=== PATIENT | female | born 1960 | race Caucasian/White ===

== ENCOUNTER 2017-09-21 20:57 | Inpatient (IN) ==
[2017-09-21] MEDS ORDERED: methylPREDNISolone SOD SUC 125 MG/2 ML VIAL IV STA (21:35)
[2017-09-21] MEDS ORDERED: cefTRIAXone 1,000 MG in SODIUM CHLORIDE 0.9% 100 ML IV STA (21:35)
[2017-09-21] MEDS ORDERED: FUROSEMIDE 100 MG/10 ML VIAL IV STA (21:35)
[2017-09-21] MEDS ORDERED: ONDANSETRON 4 MG/2 ML VIAL IV STA (21:35)
[2017-09-21] MEDS ORDERED: ALBUTEROL/IPRATROPIUM 3 ML NEB RESP TX STA (21:35)
[2017-09-21 21:58] LABS: ABG Base Excess -2.6 MMOL/L (-2.5-2.5); ABG HCO3 22.1 MMOL/L (20-26); ABG Oxygen Saturation 93.7 % (95-100); ABG PCO2 37.5 MM HG (35-48); ABG PH 7.377 (7.35-7.45); ABG PO2 71.2 MM HG (80-95); ABG TCO2 19.1 MMOL/L (23-27)
[2017-09-21 22:00] LABS: Basophils % 0.2 % (0.0-0.8); Hematocrit 41.6 VOL% (35.7-47.0); Hemoglobin 14.1 GM/DL (12.0-16.0); Immature Granulocytes % 0.6 %; Immature Granulocytes Absolute 0.12 #; Lymphocytes # 0.6 10*3/uL (1.4-4.0); Lymphocytes % 3.3 % (21.3-54.2); Mean Corpuscular HGB Conc 33.9 GM/DL (32-36); Mean Corpuscular Hemoglobin 31 PG (27-34); Mean Corpuscular Volume 92.2 FL (87-102); Monocytes # 0.5 10*3/uL (0.11-0.8); Monocytes % 2.4 % (1.7-12.7); Neutrophils # 17.3 10*3/uL (1.4-7.4); Neutrophils % 93.5 % (38.7-73.9); Platelet Count 258 T/CUMM (130-400); Red Blood Count 4.51 MC/CUMM (3.8-5.5); White Blood Count 18.5 T/CUMM (4-12)
[2017-09-21] MEDS ORDERED: FUROSEMIDE 40 MG/4 ML VIAL ONE (22:02)
[2017-09-21 22:15] LABS: INR 0.9; PT Patient Result 9.7 SECS
[2017-09-21 22:23] LABS: Albumin 3.3 G/DL (3.4-5.0); Bilirubin,Total 0.6 MG/DL (0.2-1.0); Calcium 8.8 MG/DL (8.5-10.1); Osmolality,Calculated 286.7 MOS/KG (273-304); Potassium 3.7 MMOL/L (3.5-5.1); Total Protein 6.7 G/DL (6.4-8.3); Troponin I Only 0.018 NG/ML (0.00-0.045)
[2017-09-21] MEDS ORDERED: MAGNESIUM SULF RIDER 2 GM in PREMIX 1 EACH IV STA (22:29)
[2017-09-21 23:34] LABS: Band Neutrophils 2 % (0-10); Lymphocytes 10 % (20-55); Platelet Estimate Normal; Segmented Neutrophils 86 % (50-85); Total Cells Counted 100
[2017-09-22] MEDS ORDERED: ONDANSETRON 4 MG/2 ML VIAL IV STA (00:56)
[2017-09-22] MEDS ORDERED: HYDROmorphone 2 MG/1 ML VIAL IV STA (00:56)
[2017-09-22 01:39] LABS: Lactic Acid 3.4 MMOL/L (0.4-2.0)
[2017-09-22] MEDS ORDERED: ONDANSETRON 4 MG/2 ML VIAL IV PRN (01:39)
[2017-09-22] MEDS ORDERED: ACETAMINOPHEN 325 MG TABLET PO PRN (01:39)
[2017-09-22] MEDS ORDERED: SODIUM CHLORIDE 0.9% 1,000 ML IV SCH (01:39)
[2017-09-22] MEDS ORDERED: LEVOFLOXACIN INJ 500 MG in PREMIX 1 EACH IV ONE (02:00)
[2017-09-22] MEDS: ALBUTEROL/IPRATROPIUM 3 ML NEB RESP TX SCH ×6 (02:29→23:40)
[2017-09-22] MEDS: HYDROmorphone 2 MG/1 ML VIAL IV PRN ×2 (02:37→09:44)
[2017-09-22 05:15] LABS: Basophils % 0.1 % (0.0-0.8); Hematocrit 38.7 VOL% (35.7-47.0); Hemoglobin 13.1 GM/DL (12.0-16.0); Immature Granulocytes % 0.8 %; Immature Granulocytes Absolute 0.15 #; Lymphocytes # 0.6 10*3/uL (1.4-4.0); Lymphocytes % 3.4 % (21.3-54.2); Mean Corpuscular HGB Conc 33.9 GM/DL (32-36); Mean Corpuscular Hemoglobin 31 PG (27-34); Mean Platelet Volume 11.3 FL (9.6-12.0); Monocytes # 0.4 10*3/uL (0.11-0.8); Monocytes % 2.2 % (1.7-12.7); Neutrophils # 16.9 10*3/uL (1.4-7.4); Neutrophils % 93.5 % (38.7-73.9); Platelet Count 255 T/CUMM (130-400); White Blood Count 18.1 T/CUMM (4-12)
[2017-09-22 05:47] LABS: Bilirubin,Total 0.5 MG/DL (0.2-1.0); Calcium 8.5 MG/DL (8.5-10.1); Osmolality,Calculated 281.7 MOS/KG (273-304); Potassium 3.2 MMOL/L (3.5-5.1); Risk Ratio 2.28; Total Protein 6.6 G/DL (6.4-8.3); VLDL CHOLESTEROL 13.6 MG/DL
[2017-09-22 06:06] LABS: Band Neutrophils 1 % (0-10); Lymphocytes 10 % (20-55); Platelet Estimate Normal; Segmented Neutrophils 89 % (50-85); Total Cells Counted 100
[2017-09-22] MEDS: methylPREDNISolone SOD SUC 40 MG/1 ML VIAL IV SCH ×3 (06:12→21:26)
[2017-09-22 06:27] LABS: Apearance,Urine CLEAR (Clear); Bilirubin,Urine Negative (Negative); Blood, Urine Small mg/dL (Negative); Glucose,Urine (UA) Negative (Negative); Ketones,Urine Negative (Negative); Mucus,Urine Occasional /LPF (Occasional); Nitrite,Urine Negative (Negative); Protein,Urine 100 MG/DL; RBC,Urine <1 /HPF (0-4); Squamous Epithelial Cell,Urine Occasional /HPF (0-10); Urine Color Straw (Yellow); Urine Specific Gravity 1.024 (1.001-1.035); Urine Urobilinogen < 2.0 EU/DL (0.2-1.0); WBC,Urine <1 /HPF (0-6)
[2017-09-22] MEDS ORDERED: ENOXAPARIN 40 MG/0.4 ML SYRINGE ONE (07:58)
[2017-09-22] MEDS: DOCUSATE SODIUM 100 MG CAPSULE PO SCH ×2 (08:14→21:17)
[2017-09-22] MEDS: ENOXAPARIN 40 MG/0.4 ML SYRINGE SUBCUT SCH (08:16)
[2017-09-22] MEDS: PANTOPRAZOLE 40 MG VIAL IV SCH (08:16)
[2017-09-22] MEDS ORDERED: traMADol 50 MG TABLET PO PRN (14:19)
[2017-09-22] MEDS: MONTELUKAST 10 MG TABLET PO SCH (14:33)
[2017-09-22] MEDS: ESCITALOPRAM 10 MG TABLET PO SCH (14:33)
[2017-09-22] MEDS: FEXOFENADINE 180 MG TABLET PO SCH (14:33)
[2017-09-22] MEDS: ENALAPRIL 5 MG TABLET PO SCH (14:33)
[2017-09-22] MEDS: FOLIC ACID 1 MG TABLET PO SCH (14:34)
[2017-09-22] MEDS: POTASSIUM CHLORIDE 20 MEQ TABLET PO SCH ×2 (14:34→21:17)
[2017-09-22] MEDS: CHLORTHALIDONE 25 MG TABLET PO SCH (14:34)
[2017-09-22] MEDS: PANTOPRAZOLE 40 MG TABLET PO SCH (14:58)
[2017-09-22] MEDS ORDERED: cefTRIAXone 1,000 MG in SYRINGE 1 EACH IV SCH (21:00)
[2017-09-23] MEDS ORDERED: LEVOFLOXACIN INJ 250 MG in PREMIX 1 EACH IV SCH (02:00)
[2017-09-23] MEDS: ALBUTEROL/IPRATROPIUM 3 ML NEB RESP TX SCH ×2 (03:26→07:16)
[2017-09-23] MEDS: methylPREDNISolone SOD SUC 40 MG/1 ML VIAL IV SCH (06:42)
[2017-09-23] MEDS: CHLORTHALIDONE 25 MG TABLET PO SCH (08:38)
[2017-09-23] MEDS: FEXOFENADINE 180 MG TABLET PO SCH (08:38)
[2017-09-23] MEDS: FOLIC ACID 1 MG TABLET PO SCH (08:38)
[2017-09-23] MEDS: MONTELUKAST 10 MG TABLET PO SCH (08:38)
[2017-09-23] MEDS: PANTOPRAZOLE 40 MG TABLET PO SCH (08:38)
[2017-09-23] MEDS: ENALAPRIL 5 MG TABLET PO SCH (08:39)
[2017-09-23] MEDS: PANTOPRAZOLE 40 MG VIAL IV SCH (08:39)
[2017-09-23] MEDS: DOCUSATE SODIUM 100 MG CAPSULE PO SCH (08:39)
[2017-09-23] MEDS: POTASSIUM CHLORIDE 20 MEQ TABLET PO SCH (08:39)
[2017-09-23] MEDS: ESCITALOPRAM 10 MG TABLET PO SCH (08:39)
[2017-09-23] MEDS: ENOXAPARIN 40 MG/0.4 ML SYRINGE SUBCUT SCH (08:40)
[2017-09-23 10:33] VITALS: BP 140/72
[2017-09-23] MEDS ORDERED: amLODIPine 10 MG TABLET PO SCH (14:19)
== END 2017-09-23 09:15 | disposition home or self-care (01) | DRG 206 ==
LOC: N.ED 20:57 → N.EDINP 09-22 00:59 → N.5E 09-22 01:25
PROVIDERS: ADMIT Family Medicine; ATTEND Family Medicine